=== PATIENT | female | born 1980 | race Two or more races ===

== ENCOUNTER 2017-05-03 19:43 | Emergency (ER) | payer MEDICAID ==
[~2017-05-03] VITALS: Ht 154.9 cm; Wt 73.5 kg
--- NOTE | 2017-05-03 19:51 | NUR ---
PT AMBULATORY TO ER BED 09. C/O OCCIPITAL HEADACHES W/ DIZZINESS SINCE THIS AM. PT DENIES TRAUMA. NO N/V. GOWNED AND PLACED ON MONITOR. STABLE VITALS. AWAITING MD RICHARDSON.
--- NOTE | 2017-05-03 20:17 | NUR ---
DR BEGUM AT BEDSIDE FOR EVAL.
--- NOTE | 2017-05-03 20:38 | NUR ---
RADIOLOGY AT BEDSIDE FOR CHEST XRAY.
[2017-05-03 20:40] LABS: BASOPHILS % (AUTO) 0.6 % (0.0-2.0); EOSINOPHILS # (AUTO) 0.1 /CMM (0.0-0.7); HEMATOCRIT 43 % (33-45); HEMOGLOBIN 14.3 g/dL (11.5-14.8); LYMPHOCYTES # (AUTO) 2.1 /CMM (0.8-4.8); LYMPHOCYTES % (AUTO) 26.5 % (20.0-44.0); MEAN CORPUSCULAR HEMOGLOBIN 29 PG (26.0-33.0); MEAN CORPUSCULAR HGB CONC 33 g/dl (31.0-36.0); MEAN CORPUSCULAR VOLUME 87 fL (82-100); MONOCYTES # (AUTO) 0.4 /CMM (0.1-1.30); MONOCYTES % (AUTO) 5.1 % (2.0-12.0); NEUTROPHILS # (AUTO) 5.3 /CMM (1.8-8.9); NEUTROPHILS % (AUTO) 66.8 % (43.0-81.0); PLATELET COUNT (AUTO) 247 /CMM (150-450); RDW COEFFICIENT OF VARIATION 13.3 (11.5-15.0); RED BLOOD CELL COUNT(AUTO) 4.93 MIL/uL (4.0-5.2); WHITE BLOOD COUNT (AUTO) 7.9 K/uL (4.3-11.0)
[2017-05-03 20:47] LABS: CALCIUM, SERUM 8.6 mg/dL (8.5-10.1); CARBON DIOXIDE 24 mmol/L (21-32); CHLORIDE 106 mmol/L (98-107); CREATININE 0.7 mg/dL (0.6-1.3); GLUCOSE 125 mg/dL (74-106); POTASSIUM 4.2 mmol/L (3.5-5.1); SODIUM SERUM 138 mmol/L (136-145); UREA NITROGEN, BLOOD 9 mg/dL (7-18)
[2017-05-03 20:57] LABS: TROPONIN I < 0.017 ng/mL (0.00-0.056)
[2017-05-03] MEDS ORDERED: MECLIZINE HCL 25 MG TABLET ONE (21:31)
[2017-05-03] MEDS: MECLIZINE HCL 25 MG TABLET PO ONE (21:32)
--- NOTE | 2017-05-03 21:33 | NUR ---
Patient discharged to home in stable condition. Written and verbal after care instructions given. Patient verbalizes understanding of instruction.IV removed. Catheter intact and site benign. Pressure and 4x4 applied to site. No bleeding noted.
[2017-05-03 21:34] VITALS: BP 136/92
== END 2017-05-03 21:34 | disposition home or self-care (01) ==
LOC: ER 19:47
DX: R42 Dizziness and giddiness (principal); R51 Headache; R07.89 Other chest pain
CPT/HCPCS: 36415; 71010-TC; 80048-TC; 84484-TC; 85025-TC; A4606; J8597; Z7610